=== PATIENT | male | born 1990 | race Two or more races ===

== ENCOUNTER 2018-12-07 00:33 | Emergency (ER) | payer SELFPAY ==
[2018-12-07] MEDS ORDERED: DEXAMETHASONE SOD PHOS INJ 10 MG/1 ML VIAL IV ONE (01:57)
[2018-12-07] MEDS ORDERED: KETOROLAC TROMETHAMINE INJ/PF 30 MG/1 ML SDV IV ONE (01:57)
[2018-12-07] MEDS ORDERED: DIPHENHYDRAMINE HCL 50 MG/ML VIAL IV ONE (01:57)
[2018-12-07] MEDS ORDERED: PROCHLORPERAZINE EDISYLATE INJ 10 MG/2 ML VIAL IV ONE (01:57)
[2018-12-07] MEDS ORDERED: NORMAL SALINE 1000 ML 1,000 ML IV ONE (01:58)
[2018-12-07 04:18] VITALS: BP 114/75
--- NOTE | 2018-12-07 07:14 | ER Document Report ---
Entered by AMBROCIO GRIER SCRIBE 12/07/18 0200 Acting as scribe for:KEANU LIZARRAGA DO ED General - General Chief Complaint: Vomiting Stated Complaint: VOMITING Time Seen by Provider: 12/07/18 01:21 Notes: Patient is a 28-year-old male presenting to the emergency department complaining of headache with associated vomiting and eye pain. Patient is Moh[place]-speaking so an field support technician was used throughout the visit. Patient states that the headache and eye pain described as photosensitivity began 6 hours ago. Patient states that the vomiting began 2 to 3 hours ago. Patient states that he has had similar headaches but does not recall when his last one was, he usually has 1 every week. The only difference between this episode and prior episodes as this 1 is more severe than prior episodes. Patient states that he has been experiencing blurry vision because he does not have his glasses. Patient denies having any blood in his vomit, coming to the ER for anything like this before, fever, neck pain. He has never seen a doctor for his headaches before. Past Medical History - General Information source: Patient - Social History Smoking Status: Never Smoker Cigarette use (# per day): No Chew tobacco use (# tins/day): No Frequency of alcohol use: None Drug Abuse: None Family History: Reviewed & Not Pertinent Review of Systems - Review of Systems Constitutional: See HPI. denies: Fever EENT: See HPI, Eye pain, Blurred vision, Other - Photosensitivity Cardiovascular: No symptoms reported Respiratory: No symptoms reported Gastrointestinal: See HPI, Vomiting. denies: Blood in vomit Genitourinary: No symptoms reported Male Genitourinary: No symptoms reported Musculoskeletal: See HPI. denies: Back pain Skin: No symptoms reported Hematologic/Lymphatic: No symptoms reported Neurological/Psychological: See HPI, Headaches -: Yes All other systems reviewed and negative Physical Exam - Vital signs Vitals: Pulse Resp BP Pulse Ox 64 35 H 115/68 100 12/07/18 00:39 12/07/18 00:39 12/07/18 00:39 12/07/18 00:39 Interpretation: Tachypneic - Notes Notes: PHYSICAL EXAM GENERAL: Alert, interacts well. Uncomfortable. HEAD: Normocephalic, atraumatic. EYES: Pupils equal, round, and reactive to light. Extraocular movements intact. ENT: Oral mucosa moist, tongue midline. Nares patent, no nasal septal hematoma, TM's intacts. NECK: Full range of motion. Supple. Trachea midline. LUNGS: Clear to auscultation bilaterally, no wheezes, rales, or rhonchi. No respiratory distress. HEART: Regular rate and rhythm. No murmurs, gallops, or rubs. ABDOMEN: Soft, non-tender. Non-distended. Bowel sounds present in all 4 quadrants. No guarding, rigidity, or rebound. EXTREMITIES: Moves all 4 extremities spontaneously. No edema, radial and dorsalis pedis pulses 2/4 bilaterally. No cyanosis. NEUROLOGICAL: Normal vtnskt-ar-somc and jrcm-oc-[id number] testing. Alert and oriented x3. Normal speech. cranial nerves II through XII grossly intact. Biceps and patellar DTRs 2+ bilaterally. PSYCH: Normal affect, normal mood. SKIN: Warm, dry, normal turgor. No rashes or lesions noted. Course - Re-evaluation Re-evalutation: 12/07/18 04:12 This is the exact same headache that the patient has been having on an almost weekly basis for the past several years the only difference is the degree of pain. Patient has no fever, no blurry vision, no neck pain and no injury. Patient is never seen a neurologist. Patient was treated with Toradol, Decadron, Benadryl and Compazine. Patient is now feeling much better would like to go home. Patient will be discharged to home and has been encouraged to follow-up with neurology as an outpatient as I suspect he has migraine headaches. - Vital Signs Vital signs: Temp Pulse Resp BP Pulse Ox 98.0 F 64 16 114/75 99 12/07/18 04:34 12/07/18 00:39 12/07/18 04:01 12/07/18 04:01 12/07/18 04:01 Discharge - Discharge Clinical Impression: Headache Qualifiers: Headache type: unspecified Headache chronicity pattern: acute headache Intractability: intractable Qualified Code(s): R51 - Headache Condition: Stable Disposition: HOME, SELF-CARE Instructions: Intravenous Compazine for Headaches ([facility]), Headache ([facility]), Migraine Headache ([facility]) Print Language: Mohawk I personally performed the services described in the documentation, reviewed and edited the documentation which was dictated to the scribe in my presence, and it accurately records my words and actions.
--- NOTE | 2018-12-07 19:14 | EKG REPORT ---
SEVERITY:- NORMAL ECG - SINUS RHYTHM ST ELEV, PROBABLE NORMAL EARLY REPOL PATTERN : Confirmed by: Edis Alexander MD 07-Dec-2018 19:13:15
== END 2018-12-07 04:34 | disposition home or self-care (01) ==
LOC: ER 00:33
DX: R51 Headache (principal); R11.10 Vomiting, unspecified; H53.149 Visual discomfort, unspecified
CPT/HCPCS: 93005; 99284; 96361; 96374; 96375; 93010; J1200; J1885; J0780; J7030; J1100